=== PATIENT | male | born 1995 | race Caucasian/White ===

== ENCOUNTER 2021-02-17 11:10 | Emergency (ER) | payer OTHER, SELFPAY ==
--- NOTE | ~2021-02-17 | XR_ITS ---
EXAMINATION: XR foot RT min 3V DATE: 02/17/2021 12:15 INDICATION: Right foot injury and pain and swelling. TECHNIQUE: 4 views of right foot were obtained. COMPARISON: None. FINDINGS: Bone alignment is normal. There are nondisplaced oblique fractures of the heads of the thir d and fourth metatarsal. There are calcifications dorsal to proximal navicular. There are spaces are normal. IMPRESSION: 1. Nondisplaced oblique fractures of the heads of the third and fourth metatarsals. 2. Calcifications dorsal to proximal navicular, which may be an acute avulsion fracture or a chronic finding. Reviewed, dictated and finalized at location A. IMPRESSION: 1. Nondisplaced oblique fractures of the heads of the third and fourth metatars als. 2. Calcifications dorsal to proximal navicular, which may be an acute avulsion fracture or a chronic finding.
--- NOTE | ~2021-02-17 | XR_ITS ---
EXAMINATION: XR ankle RT min 3V DATE: 02/17/2021 12:14 INDICATION: Right ankle injury and pain and swelling. TECHNIQUE: 4 views of right ankle were obtained. COMPARISON: None. FINDINGS: Bone alignment is normal. There is sclerosis in lateral aspect of distal tibial metadiaphys is, consistent with a healed nonossifying fibroma. There are calcifications dorsal to proximal navicu lar. Joint spaces are normal. IMPRESSION: 1. Calcifications dorsal to proximal navicular, which may be an acute avulsion fracture or a chronic finding. Correlate for point tenderness. Reviewed, dictated and finalized at location A.
[2021-02-17 11:18] VITALS: BP 130/71; PULSE 95; RESP 16; TEMP 36.8; O2SAT 100
[2021-02-17] MEDS: KETOROLAC 30 MG/ML VIAL (*BKC) 60 MG IM (12:29)
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
[2021-02-17 14:04] VITALS: BP 129/83; PULSE 63; RESP 18; O2SAT 100
== END 2021-02-17 14:05 | disposition home or self-care (01) ==
PROVIDERS: Emergency Provider Emergency Medicine
DX: S92.334A Nondisplaced fracture of third metatarsal bone, right foot, initial encounter for closed fracture (principal); S92.344A Nondisplaced fracture of fourth metatarsal bone, right foot, initial encounter for closed fracture; S92.251A Displaced fracture of navicular [scaphoid] of right foot, initial encounter for closed fracture; F17.290 Nicotine dependence, other tobacco product, uncomplicated; W20.1XXA Struck by object due to collapse of building, initial encounter
CPT/HCPCS: 73610; 73630; 96372; 99283; 99284; J1885